=== PATIENT | female | born 1950 | race Caucasian/White ===

== ENCOUNTER 2019-09-04 05:38 | Day surgery (SDC) | payer MEDICARE ==
[2019-09-03 14:14] LABS: HEMATOCRIT 39.5 % (36.0-48.0); HEMOGLOBIN 12.6 g/dL (12-16); MCH 27.5 pg (26.0-34.0); MCHC 31.9 g/dL (31.0-37.0); MCV 86.2 fL (80.0-100.0); MEAN PLATELET VOLUME 8.3 fL (7.4-10.4); RBC 4.58 10x6/uL (4.00-5.40); WBC 9.1 10x3/uL (4.8-10.8)
[~2019-09-04] VITALS: Ht 162.6 cm; Wt 74.8 kg
[~2019-09-04 05:38] MED LIST: ATIVAN1 MG PO; CHLORTHALIDONE25 MG PO; COZAAR50 MG PO; LEXAPRO20 MG PO; LIPITOR20 MG PO; NORVASC10 MG PO; VITAMIN D31000 UNIT PO
[2019-09-04 06:41] VITALS: BP 128/60; Ht 162.6 cm; Wt 74.8 kg
--- NOTE | 2019-09-04 10:17 | NUR ---
1012 - ANESTHESIA AT BEDSIDE FOR RE-BLOCK OF PT LEFT LOWER LEG AND FOOT
--- NOTE | 2019-09-11 09:02 | OP ---
PATIENT NAME: CORTEZ LEVINE MEDICAL RECORD: [id number] :48 LOCATION:D.OPS ADMISSION DATE: SURGEON: MADISYN RUDOLPH DPM DATE OF OPERATION: 09/04/2019 PREOPERATIVE DIAGNOSES: 1. Hallux abductovalgus, left foot. 2. Instability, left first met cuneiform joint. 3. Plantar plate rupture, left second MPJ. 4. Hammertoe deformity, left second digit. 5. Neuroma, left third interspace. POSTOPERATIVE DIAGNOSIS: 1. Hallux abductovalgus, left foot. 2. Instability, left first met cuneiform joint. 3. Plantar plate rupture, left second MPJ. 4. Hammertoe deformity, left second digit. 5. Neuroma, left third interspace. PROCEDURES: 1. Parker bunionectomy, left foot. 2. First met cuneiform joint fusion, left foot. 3. Left second Peace osteotomy. 4. Left second MPJ plantar plate repair. 5. PIPJ fusion, left second digit. 6. Neurectomy, left third interspace. ANESTHESIA: Preoperative popliteal block per the anesthesia department as well as intraoperative local around the first, second, and third ray utilizing approximately 10 cc total in the foot. HEMOSTASIS: Left thigh tourniquet at 350 mmHg. PATHOLOGY: Specimen sent for gross and micro identification. PREOPERATIVE DETAILS: The patient was taken to the OR and placed on the operating table in a supine position. This was followed by induction of general anesthesia. The left extremity was then prepped and draped in the usual aseptic technique followed by exsanguination and inflation of tourniquet. PROCEDURE #1: Parker bunionectomy, left foot: A 15-blade was used to create an incision on the dorsal aspect of the first ray and extended from the dorsal aspect of the medial cuneiform distally to the base of the proximal phalanx of the hallux. The incision was deepened down through subcutaneous tissue making sure to avoid all vital structures. Dissection was carried down further to the first MPJ where an inverted L capsulotomy was performed and medial capsular flap was reflected and the head of the first metatarsal was delivered. A sagittal saw was used to resect the medial eminence. Attention was then directed to the first interspace where a lateral release was performed. PROCEDURE #2: First met cuneiform joint fusion. The incision as described in #1 was carried down to the periosteum and the first met cuneiform joint was exposed. A sagittal saw was used to resect the joint. Temporary fixation was placed, a 5-hole plate with one screw crossing the fusion site was then placed utilizing C-arm to verify good alignment and placement as well as hardware OPERATIVE REPORT [id number] CORTEZ LEVINE placement. Excellent rigid internal fixation was noted. The wound was flushed. The first MPJ capsule was repaired with 2-0 Vicryl. The deep tissue was repaired with 2-0 Vicryl. The subcutaneous tissue was repaired with 4-0 Rapide and the skin was closed with 4-0 Rapide in a subcuticular technique followed by Dermabond. PROCEDURE #3: Left second met Peace osteotomy. A 15-blade was used to create an incision from the dorsal aspect of the second metatarsal up on top of the PIPJ of the second digit. The incision was deepened down through subcutaneous tissue to the extensor longus tendon, which was transected in a Z fashion giving access to the dorsal aspect of the second MPJ. A 15-blade was used to create a linear capsulotomy and the head of the second metatarsal was delivered. A McGlamry scoop elevator was used to free the plantar structures. At this time, a sagittal saw was used to create a Peace osteotomy from dorsal distal to plantar proximal. The Peace osteotomy over the capital fragment was translocated proximally and temporarily fixated with a K-wire. PROCEDURE # 4: Left second MPJ plantar plate repair. A second K-wire was placed in the shaft of the proximal phalanx of the second digit. A wire distractor was placed over the K-wires and the joint was distracted. There was noted to be significant disruption of the lateral aspect of the plantar plate. A 15 blade was used to complete the rupture. Scorpion passer was then used to pass FiberWire up through the central and lateral aspect of the plantar plate to help correct the medial displacement. Two small drill holes were made in the base of the proximal phalanx and the FiberWire was passed up through the small drill holes. At this time, the K-wires were removed. The capital fragment of the second metatarsal was placed in the appropriate position and fixated with 2 pop-off screws with the digit held in slight plantar flexion and abduction. The FiberWire was secured repairing the plantar plate. Excellent alignment of the digit was noted upon completion. PROCEDURE #5: PIPJ fusion, left second digit. The incision as described above was utilized to get access to the PIPJ. A sagittal saw was used to resect the head of the proximal phalanx and the base of middle phalanx. A drill hole was made in each giving allowance to placing the hammer tube graft in the proximal phalanx and the middle phalanx was then placed on top of the hammer tube compressing the fusion site noting excellent alignment and rigid fixation. The wound was flushed. At this time, the joint capsule of the second MPJ was repaired with 2-0 Vicryl. The extensor longus tendon was then repaired with a 4-0 Rapide. The subcutaneous tissue was reapproximated with 4-0 Rapide and the skin was closed with 4-0 Rapide in a subcuticular technique followed by Dermabond. PROCEDURE #6: Neurectomy, left third interspace. A 3-cm linear incision was made over the dorsal aspect of the third interspace extending to the third interspace sulcus. The incision was deepened down through subcutaneous tissue bluntly through the intermetatarsal ligament. The neuroma was visualized. It was quite large, it was freed and the proper digital branches to the third and fourth toe were cut. Proximal dissection occurred than of the nerve, which was then transected as far proximal in the interspace as possible. It was sent to pathology for gross micro identification. The subcutaneous tissue was then reapproximated with 4-0 Rapide and the skin was closed with 4-0 Rapide in a subcuticular technique followed by Dermabond. Adaptic, 4 x 4, and Conform were used to dress the wounds followed by application of a modified Hobbs compression dressing. The tourniquet was deflated. OPERATIVE REPORT [id number] CORTEZ LEVINE POSTOPERATIVE DETAILS: The patient tolerated the procedure well and left the OR with vital signs stable and vascular status at preoperative levels. The patient was transported to recovery per anesthesia in stable condition. TRANSINT:[id number] Voice Confirmation ID: [id number] DOCUMENT ID: [id number] MADISYN RUDOLPH DPM at 0902 CC: [id number] DICTATION DATE: 09/04/19 1012 FRACTIONATION SUPERVISOR: 09/04/19 1359 DEP SD 09/04/19 [id number] [place] [address]
== END 2019-09-04 11:45 | disposition home or self-care (01) ==
LOC: D.OPS 05:38 → D.PAN 08:00 → D.OPS 11:45
PROVIDERS: Anesthesiology; ATTEND Podiatrist
DX: M20.12 Hallux valgus (acquired), left foot (principal); M25.375 Other instability, left foot; M20.42 Other hammer toe(s) (acquired), left foot; G57.82 Other specified mononeuropathies of left lower limb